=== PATIENT | male | born 1965 | race Caucasian/White ===

== ENCOUNTER 2017-06-06 19:40 | Emergency (ER) | payer MEDICAID ==
[~2017-06-06] VITALS: Ht 167.6 cm; Wt 68.0 kg
[2017-06-06 22:49] VITALS: BP 117/84
[2017-06-07] MEDS ORDERED: IBUPROFEN 600MG TABLET PO ONE
== END 2017-06-07 00:55 | disposition left against medical advice (07) ==
LOC: ER 20:18
DX: B37.9 Candidiasis, unspecified (principal); M54.5 Low back pain; I10 Essential (primary) hypertension; E78.00 Pure hypercholesterolemia, unspecified; F10.20 Alcohol dependence, uncomplicated
CPT/HCPCS: 99283

== ENCOUNTER 2017-06-07 03:06 | Emergency (ER) | payer MEDICAID ==
[~2017-06-07] VITALS: Ht 165.1 cm; Wt 73.0 kg
[2017-06-07 03:16] VITALS: BP 132/70
[2017-06-07 05:40] LABS: BASOPHILS % 1.9 % (0.0-2.0); EOSINOPHILS % 1.3 % (0.0-5.0); HEMATOCRIT. 30.9 % (42.0-52.0); HEMOGLOBIN. 9.6 g/dL (14.0-18.0); LYMPHOCYTES % 25.9 % (20.0-50.0); MEAN CORPUSCULAR HEMOGLOBIN 21.8 pg (28.0-32.0); MEAN PLATELET VOLUME 7.7 fl (7.4-10.4); MONOCYTES % 8.4 % (2.0-8.0); NEUTROPHILS % 62.5 % (40.0-76.0); PLATELET 687 x1000/uL (130-400); RED BLOOD CELL COUNT 4.41 mill/uL (4.7-6.1); RED CELL DISTRIBUTION WIDTH 22.1 % (11.6-14.6)
[2017-06-07 05:43] LABS: CHLORIDE 109 mEq/L (98-107)
[2017-06-07 06:15] LABS: PROTHROMBIN TIME 10.8 sec (9.4-11.6)
[2017-06-07 06:33] LABS: CLARITY URINE CLEAR (CLEAR); COLOR URINE YELLOW (YELLOW); KETONES URINE NEGATIVE (NEGATIVE); LEUKOCYTE ESTERASE URINE 2+ (NEGATIVE); NITRITE URINE POSITIVE (NEGATIVE); OCCULT BLOOD URINE NEGATIVE (NEGATIVE); PROTEIN URINE NEGATIVE (NEGATIVE); SPECIFIC GRAVITY URINE 1.008 (1.005-1.030); UROBILINOGEN URINE 0.2 E.U./dL (0.2-1.0)
[2017-06-07 06:45] LABS: PLATELET ESTIMATE INCREASED
== END 2017-06-07 06:50 | disposition left against medical advice (07) ==
LOC: ER 03:06
DX: R10.9 Unspecified abdominal pain (principal); I10 Essential (primary) hypertension; E78.00 Pure hypercholesterolemia, unspecified; F10.20 Alcohol dependence, uncomplicated; F17.200 Nicotine dependence, unspecified, uncomplicated; Z93.3 Colostomy status
CPT/HCPCS: 36415; 71045; 80053; 81003; 83690; 85025; 85610; 93005; 99285

== ENCOUNTER 2017-06-07 13:51 | Emergency (ER) | payer MEDICAID ==
[~2017-06-07] VITALS: Ht 175.3 cm; Wt 80.0 kg
[2017-06-07 14:23] VITALS: BP 139/82
[2017-06-07] MEDS ORDERED: SODIUM CHLORIDE 0.9% 1,000 ML IV ONE (14:31)
[2017-06-07] MEDS ORDERED: KETOROLAC 30MG/ML VIAL IV ONE (14:45)
[2017-06-07] MEDS ORDERED: PIPERACILLIN/TAZ 3.375G PREMIX 50 ML IV ONE (14:45)
[2017-06-07] MEDS ORDERED: VANCOMYCIN 1 G PREMIX 200 ML IV ONE (14:45)
== END 2017-06-07 16:22 | disposition left against medical advice (07) ==
LOC: ER 13:56 → CANBEDREQ 21:33
DX: L03.116 Cellulitis of left lower limb (principal); G89.29 Other chronic pain; M54.9 Dorsalgia, unspecified; R55 Syncope and collapse; E78.00 Pure hypercholesterolemia, unspecified; I10 Essential (primary) hypertension; G82.20 Paraplegia, unspecified; F17.200 Nicotine dependence, unspecified, uncomplicated; Z93.3 Colostomy status
CPT/HCPCS: 70450; 71045; 73620; 87077; 87086; 87186; 99285; J7030; Z7610